=== PATIENT | male | born 1955 | race Caucasian/White ===

== ENCOUNTER 2025-01-26 16:31 | Emergency (ER) | payer MEDICARE, SELFPAY ==
[2025-01-26 16:36] VITALS: BP 118/75
[2025-01-26 17:14] LABS: Hematocrit 38.9 % (39.0-52.0); Hemoglobin 13.8 g/dL (13.0-18.0); Mean Corp Hgb Conc. 35.5 g/dL (33.0-37.0); Mean Corpuscular Volume 96.5 fL (80.0-94.0); Nucleated Red Blood Cells % 0 % (-); Platelet Count 181 10^3/uL (130-400); Red Cell Dist. Width 12.8 % (11.5-14.5)
[2025-01-26 17:39] LABS: Troponin I < 0.012 ng/ml
[2025-01-26 20:09] VITALS: BP 121/72
[2025-01-26] MEDS: NSS 1000 IV (20:41)
--- NOTE | 2025-01-26 20:42 | ED.GENMED ---
History of Present Illness
General
Chief Complaint: Fainting/Passed Out
Time Seen by Provider: 01/26/25 20:18
Nursing documentation reviewed up to this point in time: agreed with
History of Present Illness
History of Present Illness:
69-year-old male presents to the ER by EMS for evaluation after a near syncopal event that occurred while he was seated while watching a theater performance. Patient states that he became overwhelmed with the feeling of being hot. He experienced
this earlier this year and alerted his family that he was going to faint. He denies any chest pain or shortness of breath. He began to feel very weak and was assisted out of the theater and placed on the floor by bystanders. No loss of
consciousness. No loss of control of bowel or bladder. Patient who is present at bedside reports that some medical assistance at their side noted he might have an irregular heartbeat during this period of near syncope. He denies any recent
illness. He states that he was chewing on a 2 mg 'On' nicotine tablet during episode as he is trying to abstain from smoking cigarettes. He has been seeing his manager sales and marketing regularly through [facility], Dr Giovanni Barker, and recently
underwent stress test along with Holter monitor with no worrisome findings. Patient smokes and has a history of high cholesterol. He did not drink any water today and states he had a cup of coffee and was mid cocktail (vodka tonic) at time of
episode. No vomiting or diarrhea. No headache. No change in vision. No recent illness. No peripheral edema.
Review of Systems
Review of Systems
Allergies reviewed?: Yes
Phy Exam
Physical Exam
Physical Exam:
Patient is awake, alert, appears in no acute distress, head is NCAT, PERRL, EOMI mucous membranes moist, conjunctiva pink, heart regular rate and rhythm without murmurs or ectopy, lungs are clear to auscultation without wheezes rales or rhonchi, no
JVD, abdomen is soft and nontender on palpation, extremities without edema, GCS is 15
Course
Orders/Labs/Results
Orders:
Orders
01/26/25 16:34
Electrocardiogram (*1) Urgent
Reason for Study: Syncope
EKG- Treatment ONCE
01/26/25 16:57
Complete Blood Count/With Diff Urgent
Troponin I Urgent
01/26/25 20:20
Comprehensive Metabolic Panel Urgent
01/26/25 20:37
0.9% Sodium Chloride 1000 ml [Nss] 1,000 ml IV BOLUS
01/26/25 20:58
CR Chest - 2 Views Urgent
Comment:
Reason For Exam: syncope
Abnormal Lab Results
01/26/25 01/26/25
16:57 20:20
RBC 4.03 L 10^6/uL
(4.70-6.10)
Hct 38.9 L %
(39.0-52.0)
MCV 96.5 H fL
(80.0-94.0)
MCH 34.2 H pg
(27.0-31.0)
Carbon Dioxide 21 L mmol/L
(22-30)
01/26/25 16:57
01/26/25 20:20
CBC is very reassuring. BMP also within normal limits. Troponin negative.
Vital Signs
Initial and Last Documented VS:
Initial Vital Signs
Temp Pulse Resp BP Pulse Ox
98.5 F 66 16 118/75 97
01/26/25 16:36 01/26/25 16:36 01/26/25 16:36 01/26/25 16:36 01/26/25 16:36
Last Documented Vital Signs
Temp Pulse Resp BP Pulse Ox
98.5 F 64 21 121/72 96
01/26/25 16:36 01/26/25 20:30 01/26/25 20:30 01/26/25 20:09 01/26/25 20:58
MDM/Problems Addressed
Differential Diagnosis Includes:
Differential diagnosis to consider but not limited to electrolyte dyscrasia, arrhythmia, dehydration, adverse reaction to nicotine supplement along with other etiologies considered
Chronic conditions affecting care:
Tobacco use disorder, age greater than 50, hyperlipidemia
*Radiology
Radiology exam reviewed: preliminary read by ED provider (I independently viewed interpreted two-view chest x-ray showing clear lungs, no infiltrate, normal cardiac silhouette)
*Pulse Oximetry
SaO2: 96
Oxygen Mode of Delivery: Room air
Patient hypoxic: no
*EKG
Interpreted by ED Provider?: Yes (I independently viewed and interpreted twelve-lead EKG showing sinus bradycardia, rate 57, normal axis, no ST elevation, this is a normal tracing other than mild decreased heart rate, no prior for comparison)
*Seamless Tube Mill Operator Interpretation
Rate: bradycardiac (I independently viewed and interpreted rhythm strip showing sinus bradycardia, no ectopy)
*Critical Care Note
Total Time (30-74mins, 75-104mins- exclusive of procedures): Not Applicable
Update Note
Update Note:
Will give IV fluids while awaiting labs. Patient and present bedside agree with plan at current.
2300: Patient resting comfortably, no recurrent symptoms. No worrisome rhythms noted on monitor. Patient able to ambulate with steady gait and no assistance, able to urinate spontaneously without any presyncope. I discussed with patient very
reassuring workup in the emergency department. With suspect vasovagal episode, possibly related to poor water intake prior to going to the show today. I also discussed with patient possible relation to use of oral nicotine replacement and benefits
of abstaining from using this in the future. I did deputy chief counsel patient and present at bedside need to follow-up with his manager sales and marketing for reevaluation and further care. They expressed understanding of full discharge instructions and have no
questions at the current time.
ED Attending Note
-
Portions of this chart may have been created with voice recognition software.� Occasional wrong word or��sound alike� substitutions may have occurred due to the inherent limitations of voice recognition software.
Discharge Plan
Departure
Patient Disposition: Home (Routine Discharge)
Date of Disposition: 01/26/25
Time of Disposition: 23:08
Patient with high blood pressure during this ER visit?: No
Discharge Problem:
Pre-syncope
Instructions: Syncope (Fainting) (DC)
Referrals:
Pascale Barraza DO [Family Provider, Family Practice]
Activity Restrictions/Additional Instructions:
Please contact your manager sales and marketing on Tuesday discussed appointment for reevaluation and further care. Encourage fluids-to be drinking at least eight 8 ounce glasses of water daily. Please return to the ER for any concern
Interventions
Interventions:
*Risk Screen - Suicide Last Done: 01/26/25 16:36
*General Assessment Last Done: 01/26/25 16:36
*ED- Fall Risk Assessment Last Done: 01/26/25 16:36
*ED COVID-19 Vaccine History Last Done: 01/26/25 16:36
*ED Influenza Vaccine History Last Done: 01/26/25 16:36
ED- Cardiac Assessment Last Done: 01/26/25 20:32
ED- Neurological Assessment Last Done: 01/26/25 20:32
Discharge Date and Time
Print Language: KENYAN
[2025-01-26 20:51] LABS: ALT (SGPT) 27 U/L (0-50); AST (SGOT) 27 U/L (17-59); Albumin 4.5 g/dl (3.5-5.0); Alkaline Phosphatase 50 U/L (38-126); Blood Urea Nitrogen 19 mg/dl (9-20); Calcium 9.6 mg/dl (8.4-10.2); Carbon Dioxide 21 mmol/L (22-30); Chloride 107 mmol/L (98-107); Glucose 92 mg/dl (70-99); Potassium 4.3 mmol/L (3.5-5.1); Sodium 138 mmol/L (135-145); Total Protein 7.2 g/dl (6.3-8.2); eGFR > 60.00
[2025-01-26 21:00] VITALS: BP 120/70
[2025-01-26 22:00] VITALS: BP 117/76
== END 2025-01-26 23:22 | disposition home or self-care (01) ==
LOC: EMR 16:31
PROVIDERS: EMERGENCY PHYSICIAN Emergency Medicine; FAMILY PHYSICIAN Family Medicine
DX: R55 Syncope and collapse (principal); R00.1 Bradycardia, unspecified; E78.00 Pure hypercholesterolemia, unspecified; F17.210 Nicotine dependence, cigarettes, uncomplicated
CPT/HCPCS: 99284; 96360; 71046; 80053; 84484; 85025; 93005